=== PATIENT | male | born 1950 | race Caucasian/White ===

== ENCOUNTER 2018-05-28 14:18 | Outpatient (CLI) | payer MEDICARE, BC ==
--- NOTE | 2018-05-28 17:09 | CT ---
CT CHEST WITHOUT CONTRAST: Date: 05/28/18 PROVIDED CLINICAL HISTORY: Solitary pulmonary nodule. FINDINGS: Comparison is made with the study dated 04/09/17. The heart, pericardium, and great vessels are suboptimally evaluated in the absence of IV contrast ma terial but demonstrate an unremarkable unenhanced CT appearance. There is no evidence for thoracic lymph node enlargement with limitations due to lack of IV contrast. Coarse calcifications are seen in the right axilla, likely reflecting sequelae of prior granulomatou s disease. The lungs are free of significant opacity. There is no pleura fluid or pneumothorax apparent. The air way appears patent and of normal caliber. The visualized portions of the upper abdomen demonstrate no significant abnormality. The osseous structures demonstrate no concerning lytic or blastic lesions. Degenerative changes are s een involving the thoracic spine. IMPRESSION: No evidence for an acute process. POS: OFF
== END 2018-05-28 14:19 | disposition home or self-care (01) ==
LOC: BICCT 14:18
PROVIDERS: ATTEND Internal Medicine
DX: R91.1 Solitary pulmonary nodule (principal); R93.89 Abnormal findings on diagnostic imaging of other specified body structures
CPT/HCPCS: 71250

== ENCOUNTER 2018-11-05 15:23 | Outpatient (CLI) | payer MEDICARE, BC ==
--- NOTE | 2018-11-05 17:00 | RAD ---
Adult bone survey Right humerus one view Left humerus one view Skull 1 view Cervical spine 3 views Thoracic spine 2 views Lumbar spine 2 views Right forearm 1 view Left forearm 1 view AP pelvis one view Right femur 1 view Left femur 1 view Right lower leg 1 view Left lower leg one view HISTORY: Multiple myeloma. Restaging. COMPARISON: 11/10/2016. FINDINGS: Degenerative changes of the axial spine are apparent. Small focus of dystrophic calcificati on over the right rotator cuff suggests calcific tendinosis. Calcified lymph nodes are again demonstrated at the right axilla. No focal lytic lesions or areas of osseous destruction. IMPRESSION: No radiographic evidence of osseous metastases.
== END 2018-11-05 15:24 | disposition home or self-care (01) ==
LOC: RAD 15:23
PROVIDERS: ATTEND Internal Medicine Medical Oncology
DX: D47.2 Monoclonal gammopathy (principal)
CPT/HCPCS: 77075

== ENCOUNTER 2020-11-10 16:15 | Outpatient (CLI) | payer MEDICARE, BC | END 2020-11-10 16:16 | disposition home or self-care (01) | LOC: RAD 16:15 | PROVIDERS: ATTEND Internal Medicine Medical Oncology | DX: D47.2 Monoclonal gammopathy (principal) | CPT/HCPCS: 77075 ==

== ENCOUNTER 2022-02-17 10:06 | Outpatient (CLI) | payer MEDICARE, BC | END 2022-02-17 10:07 | disposition home or self-care (01) | LOC: LABBT 10:06 | PROVIDERS: ATTEND Family Medicine | DX: Z20.822 Contact with and (suspected) exposure to COVID-19 (principal) | CPT/HCPCS: 87811 ==

== ENCOUNTER 2022-02-20 10:00 | Outpatient (CLI) | payer MEDICARE, BC | END 2022-02-20 10:01 | disposition home or self-care (01) | LOC: RAD 10:00 | PROVIDERS: ATTEND Internal Medicine | DX: R13.10 Dysphagia, unspecified (principal); K21.9 Gastro-esophageal reflux disease without esophagitis; G60.9 Hereditary and idiopathic neuropathy, unspecified | CPT/HCPCS: 74230 ==

== ENCOUNTER 2022-08-29 13:58 | Outpatient (CLI) | payer MEDICARE, BC | END 2022-08-29 13:59 | disposition home or self-care (01) | LOC: BICCT 13:58 | PROVIDERS: ATTEND Psychiatry & Neurology Neurology | DX: R41.9 Unspecified symptoms and signs involving cognitive functions and awareness (principal); R42 Dizziness and giddiness; J34.89 Other specified disorders of nose and nasal sinuses | CPT/HCPCS: 70450 ==

== ENCOUNTER 2023-04-11 11:24 | Outpatient (CLI) | payer MEDICARE, BC | END 2023-04-11 11:25 | disposition home or self-care (01) | LOC: RAD 11:24 | DX: D47.2 Monoclonal gammopathy (principal) | CPT/HCPCS: 77073 ==

== ENCOUNTER 2024-04-11 10:26 | Outpatient (CLI) | payer MEDICARE | END 2024-04-11 10:27 | disposition home or self-care (01) | LOC: RAD 10:26 | PROVIDERS: ATTEND Internal Medicine | DX: D47.2 Monoclonal gammopathy (principal) | CPT/HCPCS: 77075 ==

== ENCOUNTER 2025-04-24 08:47 | Outpatient (CLI) | payer MEDICARE | END 2025-04-24 08:48 | disposition home or self-care (01) | LOC: SCSMRI 08:47 | PROVIDERS: ATTEND Orthopaedic Surgery | DX: S83.231A Complex tear of medial meniscus, current injury, right knee, initial encounter (principal); M24.19 Other articular cartilage disorders, other specified site ==